=== PATIENT | female | born 1995 | race Two or more races ===

== ENCOUNTER 2017-03-03 04:03 | Emergency (ER) | payer MEDICAID, OTHER ==
[2017-03-03] MEDS ORDERED: NS 0.9% 1000 ML* 1,000 ML IV ONE (04:17)
[2017-03-03] MEDS ORDERED: Ondansetron INJ* 2 MG/ML VIAL IV ONE (04:17)
[2017-03-03 04:34] LABS: Hematocrit 39 % (35-47); Hemoglobin 12.5 g/dl (12.0-16.0); Mean Corpuscular HGB Conc 32 g/dl (31-36); Mean Corpuscular Hemoglobin 27 pg (27-31); Mean Corpuscular Volume 83 fL (80-97); Mean Platelet Volume 8 um3 (7.4-10.4); Red Blood Count 4.64 10^6/ul (4.0-5.4); Red Cell Distribution Width 15 % (10.5-15); White Blood Count 14.4 10^3/ul (3.5-10.8)
[2017-03-03 04:43] LABS: ALT 15 U/L (7-52); AST 16 U/L (13-39); Alkaline Phosphatase 80 U/L (34-104); Anion Gap 7 mmol/L (2-11); BUN/Creatinine Ratio 14.4 (8-20); Blood Urea Nitrogen 14 mg/dL (6-24); C Reactive Protein 38.18 mg/L (< 5.00); CO2 Carbon Dioxide 27 mmol/L (22-32); Calcium 9.3 mg/dL (8.6-10.3); Chloride 103 mmol/L (101-111); EGFR African American 93.2 (>60); EGFR Non-African American 72.5 (>60); Globulin 3.5 g/dL (2-4); Glucose 140 mg/dL (70-100); Lipase 16 U/L (11.0-82.0); Potassium 3.8 mmol/L (3.5-5.0); Sodium 137 mmol/L (133-145); Total Protein 7.5 g/dL (6.4-8.9)
--- NOTE | 2017-03-03 04:54 | ED ---
Carson Vang [place], scribed for Cecil Stafford MD on 03/03/17 at 0450 . Abdominal Pain/Female - HPI Summary HPI Summary: Patient is a 21 y/o F who presents to the ED with sharp abdominal pain for the past 2 hours. She states that pain began as umbilical, but is radiating to the right side. Pt reports nausea, but denies vomiting or changes in BM/urination. Her last meal was at 2230 tonight. Pt was at a concert and had a corn dog and other foods. - History of Current Complaint Stated Complaint: ABD PAIN Time Seen by Provider: 03/03/17 04:17 Hx Obtained From: Patient Onset/Duration: Gradual Onset, Lasting Hours, Still Present Timing: Constant Severity Initially: Moderate Severity Currently: Moderate Pain Intensity: 8 Pain Scale Used: 0-10 Numeric Location: Discrete At: RUQ, Discrete At: RLQ, Umbilical Radiates: Yes Character: Sharp Aggravating Factor(s): Nothing Alleviating Factor(s): Nothing Associated Signs and Symptoms: Positive: Nausea. Negative: Urinary Symptoms, Vomiting Allergies/Adverse Reactions: Allergies Allergy/AdvReac Type Severity Reaction Status Date / Time codiene Allergy Rash Uncoded 10/02/15 17:42 PMH/Surg Hx/FS Hx/Imm Hx Infectious Disease History: No Infectious Disease History: Denies: Traveled Outside the [place] in Last 30 Days - Family History Known Family History: Positive: Cardiac Disease, Diabetes - Social History Alcohol Use: Rare Hx Substance Use: No Substance Use Type: Reports: None Hx Tobacco Use: Yes Smoking Status (MU): Light Every Day Tobacco Smoker Review of Systems Positive: Abdominal Pain, Nausea. Negative: Vomiting Positive: no symptoms reported All Other Systems Reviewed And Are Negative: Yes Physical Exam Triage Information Reviewed: Yes Vital Signs On Initial Exam: Initial Vitals Temp Pulse Resp BP Pulse Ox 97.4 F 107 16 130/79 100 03/03/17 04:22 03/03/17 04:22 03/03/17 04:22 03/03/17 04:22 03/03/17 04:22 Vital Signs Reviewed: Yes Appearance: Positive: Pain Distress - mild discomfort, Obese Skin: Positive: Warm Head/Face: Positive: Normal Head/Face Inspection Eyes: Positive: AVE ENT: Positive: Hearing grossly normal Neck: Positive: Supple Respiratory/Lung Sounds: Positive: Clear to Auscultation, Breath Sounds Present Cardiovascular: Positive: RRR Abdomen Description: Positive: No Organomegaly, Soft, Other: - obese, mild diffuse tenderness Bowel Sounds: Positive: Present Musculoskeletal: Positive: Strength/ROM Intact Neurological: Positive: Alert, Oriented to Person Place, Time Psychiatric: Positive: Affect/Mood Appropriate - [place] Coma Scale Coma Scale Total: 15 Diagnostics - Vital Signs Vital Signs Temp Pulse Resp BP Pulse Ox 03/03/17 04:23 97.4 F 107 16 130/79 100 03/03/17 04:22 97.4 F 107 16 130/79 100 - Laboratory Lab Results: Lab Results 03/03/17 Range/Units 04:18 WBC 14.4 H (3.5-10.8) 10^3/ul RBC 4.64 (4.0-5.4) 10^6/ul Hgb 12.5 (12.0-16.0) g/dl Hct 39 (35-47) % MCV 83 (80-97) fL MCH 27 (27-31) pg MCHC 32 (31-36) g/dl RDW 15 (10.5-15) % Plt Count 311 (150-450) 10^3/ul MPV 8 (7.4-10.4) um3 Neut % (Auto) 74.3 (38-83) % Lymph % (Auto) 15.3 L (25-47) % Young % (Auto) 9.2 H (1-9) % Eos % (Auto) 0.5 (0-6) % Baso % (Auto) 0.7 (0-2) % Absolute Neuts (auto) 10.7 H (1.5-7.7) 10^3/ul Absolute Lymphs (auto) 2.2 (1.0-4.8) 10^3/ul Absolute Monos (auto) 1.3 H (0-0.8) 10^3/ul Absolute Eos (auto) 0.1 (0-0.6) 10^3/ul Absolute Basos (auto) 0.1 (0-0.2) 10^3/ul Absolute Nucleated RBC 0.01 10^3/ul Nucleated RBC % 0 Result Diagrams: 03/03/17 04:18 03/03/17 04:18 Lab Statement: Any lab studies that have been ordered have been reviewed, and results considered in the medical decision making process. Re-Evaluation - Re-Evaluation First Eval Re-Evaluation Time: 05:33 Change: Improved Comment: Pt feels better. Abdominal Pain Fem Course/Dx - Course Course Of Treatment: 21 y/o F presents with sharp abdominal pain for the past 2 hours. She states that pain began as umbilical, but is radiating to the right side. Pt reports nausea, but denies vomiting or changes in BM/urination. Pt received fluids and Zofran in ED course. She will be DC'd with instructions. - Diagnoses Provider Diagnoses: Abdominal pain, Vomiting Discharge - Discharge Plan Condition: Improved Disposition: HOME Patient Education Materials: Diet for Stomach Ulcers and Gastritis (ED), Acute Nausea and Vomiting (ED), Abdominal Pain (ED) [place] [facility] [place] [facility]] Additional Instructions: Please follow [place] [facility] [place]. The documentation as recorded by the Carson weems [place] accurately reflects the service I personally performed and the decisions made by me, Cecil Stafford MD.
[2017-03-03 05:48] VITALS: BP 124/52
== END 2017-03-03 05:46 | disposition home or self-care (01) ==
LOC: ED 04:03
DX: R10.33 Periumbilical pain (principal); R10.11 Right upper quadrant pain; R11.0 Nausea; Z32.02 Encounter for pregnancy test, result negative; E66.9 Obesity, unspecified; Z88.5 Allergy status to narcotic agent; F17.210 Nicotine dependence, cigarettes, uncomplicated
CPT/HCPCS: 36415; 80053; 83605; 83690; 84702; 85025; 86140; 96374; 99283; J2405

== ENCOUNTER 2018-06-24 17:36 | Emergency (ER) | payer OTHER ==
[2018-06-24] MEDS ORDERED: Ondansetron ODT TAB* 4 MG PO ONE ×2 (18:28)
--- NOTE | 2018-06-24 18:30 | UC ---
Abdominal Pain Female HPI - HPI Summary HPI Summary: generalized abdomen pain nausea no vomiting and diarrhea that has improved though out the day no fevers - History of Current Complaint Chief Complaint: UCGI Stated Complaint: ABD PAIN Time Seen by Provider: 06/24/18 18:22 Hx Obtained From: Patient ?: No Onset/Duration: Sudden Onset, Lasting Days - 1 Timing: Constant Pain Intensity: 0 Location: Diffuse Radiates: No Character: Cramping Aggravating Factor(s): Nothing Alleviating Factor(s): Nothing Associated Signs and Symptoms: Positive: Nausea, Diarrhea Allergies/Adverse Reactions: Allergies Allergy/AdvReac Type Severity Reaction Status Date / Time codiene Allergy Rash Uncoded 06/24/18 17:49 Home Medications: Home Medications Calcium Carbonate CHEW TAB* [Tums*] 500 mg PO BID 06/24/18 [History Confirmed ] Calcium Carbonate [Calcium/C/D] 1 chw PO WEEKLY 06/24/18 [History Confirmed 12/06] L.acidoph,Paracasei, B.lactis [Probiotic] 1 each PO DAILY 06/24/18 [History Confirmed 06/24/18] PMH/Surg Hx/FS Hx/Imm Hx Previously Healthy: Yes - Surgical History Surgical History: None - Family History Known Family History: Positive: Cardiac Disease, Diabetes - Social History Occupation: Employed Full-time Lives: With Family Alcohol Use: Occasionally Substance Use Type: Marijuana Substance Use Comment - Amount & Last Used: 3x/week Smoking Status (MU): Former Smoker Household Exposure Type: Cigarettes Review of Systems Constitutional: Negative Skin: Negative Eyes: Negative ENT: Negative Respiratory: Negative Cardiovascular: Negative Gastrointestinal: Diarrhea, Nausea Genitourinary: Negative Motor: Negative Neurovascular: Negative Musculoskeletal: Negative Neurological: Negative Psychological: Negative Is Patient Immunocompromised?: No All Other Systems Reviewed And Are Negative: Yes Physical Exam Triage Information Reviewed: Yes Appearance: Well-Appearing, No Pain Distress, Obese Vital Signs: Initial Vital Signs Temp 98.5 F 06/24/18 17:42 Pulse 75 06/24/18 17:42 Resp 16 06/24/18 17:42 BP 157/94 06/24/18 17:42 Pulse Ox 100 06/24/18 17:42 Vital Signs Reviewed: Yes Eye Exam: Normal Eyes: Positive: Conjunctiva Clear ENT Exam: Normal ENT: Positive: Normal ENT inspection, Hearing grossly normal. Negative: Trismus , Muffled voice, Hoarse voice Dental Exam: Normal Neck exam: Normal Neck: Positive: Supple, Nontender Respiratory Exam: Normal Respiratory: Positive: Chest non-tender, Lungs clear, Normal breath sounds, No respiratory distress, No accessory muscle use Cardiovascular Exam: Normal Cardiovascular: Positive: RRR, No Murmur, Pulses Normal, Brisk Capillary Refill Abdominal Exam: Other Abdomen Description: Positive: No Organomegaly, Soft, Other: - diffuse abdomen pain. Negative: CVA Tenderness (R), CVA Tenderness (L) Bowel Sounds: Positive: Present Musculoskeletal Exam: Normal Musculoskeletal: Positive: Strength Intact, ROM Intact, No Edema Neurological Exam: Normal Neurological: Positive: Alert, Muscle Tone Normal Psychological Exam: Normal Skin Exam: Normal Abd Pain Female Course/Dx - Course Course Of Treatment: zofran, advance clear liquids to diarrhea reflief diet, rest follow with pcp prn - Differential Dx/Diagnosis Provider Diagnoses: acute nausea/diarrhea Discharge - Sign-Out/Discharge Documenting (check all that apply): Patient Departure All imaging exams completed and their final reports reviewed: No Studies - Discharge Plan Condition: Stable Disposition: HOME Patient Education Materials: Acute Nausea and Vomiting (ED), Acute Diarrhea (ED ), Hypertension (ED), Nutrition Tips for Relief of Diarrhea (ED) Forms: *Work Release Referrals: [facility] [facility] [place] [facility] [place]] Care [facility] [Outside] - 1 Week - Billing Disposition and Condition Condition: STABLE Disposition: Home
[2018-06-24 18:54] VITALS: BP 119/91
== END 2018-06-24 18:58 | disposition home or self-care (01) ==
LOC: UCEAST 17:36
DX: R11.0 Nausea (principal); R19.7 Diarrhea, unspecified; R10.84 Generalized abdominal pain; Z88.5 Allergy status to narcotic agent; Z87.891 Personal history of nicotine dependence
CPT/HCPCS: 81003; 84702; 99212; A9270-GY; G0463

== ENCOUNTER 2018-10-25 10:36 | Emergency (ER) | payer OTHER ==
[2018-10-25 10:45] VITALS: BP 159/70
--- NOTE | 2018-10-25 11:27 | ED ---
Abdominal Pain/Female - HPI Summary HPI Summary: 22 yo WF p/w RUQ pain x months worsened with fatty food/fried food radiates to epigastrium - History of Current Complaint Chief Complaint: UCAbdominalPain Stated Complaint: ABD PAIN Time Seen by Provider: 10/25/18 10:54 Hx Obtained From: Patient Hx Last Menstrual Period: unk ?: No Severity Initially: Moderate Severity Currently: Moderate Pain Intensity: 1 Allergies/Adverse Reactions: Allergies Allergy/AdvReac Type Severity Reaction Status Date / Time codiene Allergy Rash Uncoded 10/25/18 10:45 PMH/Surg Hx/FS Hx/Imm Hx Endocrine/Hematology History: Reports: Hx Diabetes - prediabetic Cardiovascular History: Reports: Hx Hypertension Infectious Disease History: No Infectious Disease History: Denies: Traveled Outside the [place] in Last 30 Days - Family History Known Family History: Positive: Cardiac Disease, Diabetes - Social History Alcohol Use: Occasionally Hx Substance Use: No Substance Use Type: Reports: Marijuana Substance Use Comment - Amount & Last Used: 3x/week Hx Tobacco Use: Yes Smoking Status (MU): Former Smoker Review of Systems - ROS Summary Review of Systems Summary: Constitutional: Negative Eyes: Negative ENT: Negative Cardiovascular: Negative Respiratory: Negative Gastrointestinal: RUQ pain Genitourinary: Negative Musculoskeletal: Negative Neurological: Negative Psychological: Normal All Other Systems Reviewed And Are Negative: Yes All Other Systems Reviewed And Are Negative: Yes Physical Exam - Summary Physical Exam Summary: Vital Signs Reviewed: Yes Skin: Positive: Warm Head/Face: Positive: Normal Head/Face Inspection Eyes: Positive: Normal ENT: Positive: Normal ENT inspection Neck: Positive: Supple Respiratory/Lung Sounds: Positive: Clear to Auscultation Cardiovascular: Positive: Normal, RRR, S1, S2 Abdomen Description: Positive: mild to moderate RUQ tenderness Musculoskeletal: Positive: Normal Neurological: Positive: Normal Psychiatric: Positive: Normal, Affect/Mood Appropriate Vital Signs On Initial Exam: Initial Vitals Temp Pulse Resp BP Pulse Ox 36.6 C 83 16 159/70 100 10/25/18 10:41 10/25/18 10:41 10/25/18 10:41 10/25/18 10:41 10/25/18 10:41 Diagnostics - Vital Signs Vital Signs Temp Pulse Resp BP Pulse Ox 10/25/18 10:41 36.6 C 83 16 159/70 100 - Laboratory Lab Statement: Any lab studies that have been ordered have been reviewed, and results considered in the medical decision making process. Abdominal Pain Fem Course/Dx - Course Course Of Treatment: RUQ US- no GB stones, +Fatty liver infiltration, FBS 85, discussed lifestyle modification and to establish care with PCP - Diagnoses Provider Diagnoses: RUQ abdominal pain Discharge - Sign-Out/Discharge Documenting (check all that apply): Patient Departure All imaging exams completed and their final reports reviewed: Yes - Discharge Plan Condition: Stable Disposition: HOME Patient Education Materials: Non-Alcoholic Fatty Liver Disease (ED) Additional Instructions: PLEASE ESTABLISH CARE WITH A PCP FOR FURTHER MANAGEMENT GOING FORWARD. - Billing Disposition and Condition Condition: STABLE Disposition: Home
== END 2018-10-25 13:15 | disposition home or self-care (01) ==
LOC: UCEAST 10:36
DX: R10.11 Right upper quadrant pain (principal); E11.9 Type 2 diabetes mellitus without complications; I10 Essential (primary) hypertension; Z88.5 Allergy status to narcotic agent
CPT/HCPCS: 76705; 99211; G0463